=== PATIENT | male | born 1935 | race Caucasian/White ===

== ENCOUNTER 2017-07-19 12:01 | Emergency (ER) | payer OTHER ==
[~2017-07-19] VITALS: Ht 177.8 cm; Wt 82.6 kg
[2017-07-19] MEDS ORDERED: COZAAR100 MG (12:16)
[2017-07-19] MEDS ORDERED: TOPROL XL100 M1 (12:17)
== END 2017-07-19 19:18 | disposition home or self-care (01) ==
LOC: ER 12:01
DX: K52.89 Other specified noninfective gastroenteritis and colitis (principal)

== ENCOUNTER 2019-05-03 15:12 | Emergency (ER) | payer OTHER ==
[~2019-05-03] VITALS: Ht 177.8 cm; Wt 82.6 kg
[~2019-05-03 15:12] MED LIST: COZAAR100 MG; TOPROL XL100 M1
[2019-05-03] MEDS ORDERED: VISTARIL50 MG PO (21:10)
== END 2019-05-03 21:31 | disposition home or self-care (01) ==
LOC: ER 15:12 → CPU-OBS 16:34 → ER 21:31
DX: R00.2 Palpitations (principal)